=== PATIENT | female | born 1940 | race African-American/Black ===

== ENCOUNTER 2017-04-21 14:12 | Emergency (ER) | payer MEDICAID ==
[~2017-04-21] VITALS: Ht 167.6 cm; Wt 47.2 kg
[2017-04-21] MEDS ORDERED: NAPROXEN 500 MG TABLET PO STA (15:11)
--- NOTE | 2017-04-21 15:36 | PHYS DOC ---
Past Medical History Past Medical History: UTI Past Surgical History: No Surgical History Alcohol Use: None Drug Use: None Adult General Chief Complaint Chief Complaint: LOWER EXTREMITY EDEMA HPI HPI 76-year-old -Irish female with a history of severe osteoarthritis uses a walker because of chronic weakness and joint pain now presents to the emergency department complaining of bilateral knee pain right greater than left and bilateral lower extremity pain. Triage note mentioned that legs were swollen but patient and daughter, but they're not swollen just painful. Patient has not had a prior DVT nor does she have history of coagulopathy. She does have a history of severe arthritis. In the past she had injured her right knee but not recently. She thinks she is having pain from arthritis but she is not sure. It hurts to bend the right knee and bear weight on it. She is unable to use her walker as she typically would and is currently using a wheelchair which she sometimes finds necessary. No other complaints no chest pain or shortness of breath otherwise asymptomatic Review of Systems Review of Systems Constitutional: Denies fever or chills [] Eyes: Denies change in visual acuity, redness, or eye pain [] HENT: Denies nasal congestion or sore throat [] Respiratory: Denies cough or shortness of breath [] Cardiovascular: No additional information not addressed in HPI [] GI: Denies abdominal pain, nausea, vomiting, bloody stools or diarrhea [] : Denies dysuria or hematuria [] Musculoskeletal: Denies back pain or joint pain [] Integument: Denies rash or skin lesions [] Neurologic: Denies headache, focal weakness or sensory changes [] Endocrine: Denies polyuria or polydipsia [] Current Medications Current Medications Current Medications Medications (Trade) Dose Ordered Sig/Elisa Start Time Stop Time Status Last Admin Dose Admin Naproxen (Naprosyn) 500 mg 1X STAT 04/21/17 15:11 04/21/17 15:14 DC 04/21/17 15:19 500 MG Allergies Allergies Allergies Coded Allergies Type Severity Reaction Last Updated Verified ibuprofen Adverse Reaction Intermediate Palpitations 04/21/17 Yes Physical Exam Physical Exam Well-appearing elderly female chronically weak appearing emaciated in no acute distress smiling cheerful communicative and appropriate. Bilateral lower extremities with no swelling or asymmetry. Minimal soft tissue tenderness bilaterally but no erythema warmth fluctuance or crepitus. Chronic bony changes of both knees right greater than left. Range of motion intact for all joints however somewhat uncomfortable with right knee range of motion. No cords appreciated. Patient is neurovascularly intact distally. Negative straight leg raise bilaterally. On tender stable pelvis remainder of exam benign Constitutional: Well developed, well nourished, no acute distress, non-toxic appearance. [] HENT: Normocephalic, atraumatic, bilateral external ears normal, oropharynx moist, no oral exudates, nose normal. [] Eyes: PERRLA, EOMI, conjunctiva normal, no discharge. [] Neck: Normal range of motion, no tenderness, supple, no stridor. [] Cardiovascular:Heart rate regular rhythm, no murmur [] Lungs & Thorax: Bilateral breath sounds clear to auscultation [] Abdomen: Bowel sounds normal, soft, no tenderness, no masses, no pulsatile masses. [] Skin: Warm, dry, no erythema, no rash. [] Back: No tenderness, no CVA tenderness. [] Extremities: No tenderness, no cyanosis, no clubbing, ROM intact, no edema. [] Neurologic: Alert and oriented X 3, normal motor function, normal sensory function, no focal deficits noted. [] Psychologic: Affect normal, judgement normal, mood normal. [] Current Patient Data Vital Signs Vital Signs Date Time Temp Pulse Resp B/P (MAP) Pulse Ox O2 Delivery O2 Flow Rate FiO2 04/21/17 14:40 98.6 79 30 148/71 (96) 99 Room Air 98.6 EKG EKG [] Radiology/Procedures Radiology/Procedures [] Course & Med Decision Making Course & Med Decision Making Pertinent Labs and Imaging studies reviewed. (See chart for details) Signs and symptoms consistent with suspected exacerbation of severe osteoarthritis which patient and daughter are aware. She has no history of present colopathy and is not a visible asymmetry however given her vague complaint of bilateral lower extremity aching will Doppler to rule out less likely possibility of DVT and x-ray knee on the right to rule out less likely possibility of lytic lesion or atraumatic fracture. Default diagnosis will be exacerbation of osteoarthritis which is well known to patient. We'll recommend NSAIDs if patient's kidney function tolerates this and follow-up with PCP. Patient will use walker or wheelchair as needed and follow up with her doctor and orthopedics and she and her daughter agree with outpatient follow-up and strict return precautions will be given [] Dragon Disclaimer Dragon Disclaimer This electronic medical record was generated, in whole or in part, using a voice recognition dictation system. Departure Departure Impression: Primary Impression: Osteoarthritis of both knees Additional Impressions: Knee pain Lower extremity pain Disposition: HOME, SELF-CARE Condition: IMPROVED Referrals: SILVINA ROJAS MD (PCP) Patient Instructions: Osteoarthritis Additional Instructions: It appears that your knee pain today as a result of your osteoarthritis. It is common for this pain to come and go sometimes better and sometimes worse. Take anti-inflammatory medicines if you're Dr. says that your kidney function is adequate for this. Naprosyn which is also called naproxen sodium, would be helpful. He can take 2 [id number] pills twice a day if needed. If her knee is especially sore apply an ice pack and elevate whenever possible. follow- up with your doctor for reevaluation and referral to orthopedics as needed Problem Qualifiers FABIANA ARRINGTON MD Apr 21, 2017 15:36
--- NOTE | 2017-04-21 15:45 | RAD ---
Right knee, 3 views, 04/21/2017: History: Knee pain, remote fall The bony structures are demineralized. No fracture or dislocation is identified. No significant arthritic change is seen. There is no evidence of a significant joint effusion. IMPRESSION: 1. Demineralization. 2. No acute bony abnormality is detected.
--- NOTE | 2017-04-21 16:24 | RAD ---
Indication edema and swelling. Elevated d-dimer. Grayscale color Doppler and spectral imaging was performed. The examination was targeted to the veins of the lower extremities. Bilaterally the common femoral, femoral and popliteal vessels demonstrate normal flow compressibility and augmentation. No thrombus is seen. The visualized calf veins, bilaterally, appeared unremarkable. IMPRESSION: Negative bilateral lower extremity venous analysis for DVT
[2017-04-21 16:42] VITALS: BP 144/67
== END 2017-04-21 17:06 | disposition home or self-care (01) ==
LOC: ER 14:12
DX: M17.0 Bilateral primary osteoarthritis of knee (principal); M79.605 Pain in left leg; M79.604 Pain in right leg; Z87.440 Personal history of urinary (tract) infections; Z88.6 Allergy status to analgesic agent
CPT/HCPCS: 73562; 93970; 99284-25